=== PATIENT | male | born 1970 | race Caucasian/White ===

== ENCOUNTER → 2016-09-17 | Outpatient (CLI) | payer OTHER ==
--- NOTE | 2016-09-17 15:13 | MR ---
EXAMINATION TYPE: MR knee RT wo con DATE OF EXAM: 09/17/2016 3:02 PM COMPARISON: NONE HISTORY: Rt. knee pain and internal arrangement per order, history of prior ACL repair surgery TECHNIQUE: Multiplanar, multisequence images of the knee is performed without IV contrast. FINDINGS: MEDIAL MENISCUS: Anterior horn is without tear. Posterior horn is truncated, presumed postsurgical. LATERAL MENISCUS: Anterior and posterior horns are intact without tear. CRUCIATE LIGAMENTS: The posterior cruciate ligament is intact and unremarkable. There is artifact fro m prior ACL surgical repair. Normal-appearing ACL fibers are not identified. Recurrent full-thickness tear is suspected. COLLATERAL LIGAMENTS: The medial collateral ligament and lateral collateral ligament complex are inta ct and unremarkable. EXTENSOR MECHANISM: Visualized quadriceps and patellar tendons are intact. EFFUSION: No significant suprapatellar joint effusion. POPLITEAL CYST: No popliteal/campos cyst. TRICOMPARTMENT SPACES: Moderate to advanced joint space loss patellofemoral compartment is seen. Ther e is more mild to moderate joint space loss and spurring medial and lateral tibiofemoral compartments . CARTILAGE: There is full-thickness chondromalacia patella along the posterior patellar pole. There is ossific T2 hyperintense signal superior lateral patellar pole near axial image 24. Articular cartila ge medial and lateral tibiofemoral compartments is fairly well-maintained. BONE MARROW SIGNAL: Area of increased T2 signal could reflect some bone marrow edema or subchondral c ystic change posterior tibial plateau near PCL insertion on sagittal image 15. OTHER: No additional significant abnormality is appreciated. IMPRESSION: 1. Artifact from prior ACL surgical repair with full-thickness retracted tear of the repaired ACL fel t present. 2. Presumed postsurgical change posterior horn medial meniscus, clinical correlation advised otherwis e full-thickness complex tear would need to be considered. 3. Fairly moderate to advanced patellofemoral compartment degenerative changes with significant chond romalacia patella present. More mild to moderate degenerative changes medial and lateral tibiofemoral compartments is noted.
== END | disposition home or self-care (01) ==
LOC: RADMRIMAIN 13:27
PROVIDERS: ATTEND Family Medicine
DX: M17.11 Unilateral primary osteoarthritis, right knee (principal); Z98.890 Other specified postprocedural states